=== PATIENT | female | born 1965 | race Caucasian/White ===

== ENCOUNTER 2021-05-19 01:35 | Outpatient (CLI) | payer OTHER, SELFPAY ==
--- NOTE | 2021-05-19 06:45 | DI.MAMMO_ITS ---
Exam(s) MAMMO SCREENING EXAM: MAMMO SCREENING CLINICAL HISTORY: screening,Z12.39. TECHNIQUE: Bilateral full field digital CC and MLO mammographic images were obtained with 3D tomosyn thesis and utilizing computer aided detection (CAD). COMPARISON: Prior [place] of state mammogram performed January 2020 was reviewed. FINDINGS: No new significant left breast findings. In the right breast there are few nodular densities, the largest being in the upper outer quadrant lo cated 12 cm from the nipple and measuring 9 by 5 millimeters, unchanged. There are no new findings in the immediate vicinity of the biopsy marker clip in the medial aspect of the right breast. Another smaller asymmetric density-possible nodule seen mid aspect of the right breast, slightly more evident on the prior study although this may be technique related. No malignant-appearing microcalc ification groups in this region or elsewhere in either breast. There is no significant architectural distortion nor skin thickening-retraction. IMPRESSION: 1. No radiographic evidence of malignancy in left breast. 2. Nodular densities in the right breast, 1 slightly larger than previous outside mammogram of [facility] 2019. Recommend spot compression views and ultrasound right breast. BI-RADS Category 0 - Assessment Incomplete: Need additional imaging evaluation Breast Density - Category B - Scattered areas of fibroglandular density Breast density Category C or D implies that the patient has dense breast tissue. Dense breast tissue can make it harder to find cancer on a mammogram. Dense breast tissue is also associated with an incr eased risk of breast cancer. This information about the result of the mammogram report was provided to the patient to raise their awareness. Use this report when you speak with the patient about their risks for breast cancer, which includes their family history. At that time, you may recommend additional screening tests (Ultrasoun d or MRI) as these tests may add significant information. A negative radiographic report should not delay biopsy if a dominant or clinically suspicious mass is present. Up to ten percent of cancers are not identified on mammography. A negative report may reinforce clinical impression. Adenosis and dense breasts may obscure an underlying neoplasm. False positive reports average 6 to 10%. Patient will receive a letter notifying them of these results.
== END 2021-05-19 01:55 ==
DX: Z12.31 Encounter for screening mammogram for malignant neoplasm of breast (principal); R92.8 Other abnormal and inconclusive findings on diagnostic imaging of breast
CPT/HCPCS: 77063; 77067

== ENCOUNTER 2021-05-29 03:25 | Outpatient (CLI) | payer OTHER, SELFPAY ==
--- NOTE | 2021-05-29 | DI.MAMMO_ITS ---
Exam(s) MAMMO SCREEN CALL BACK UNI EXAM: MAMMO SCREEN CALL BACK UNI CLINICAL HISTORY: NODULAR DENSITIES RT BREAST TECHNIQUE: Spot compression views and tomographic imaging were performed. COMPARISON: 19 May 2021 in January 2020 from [place], [place] FINDINGS: No suspicious masses or suspicious microcalcifications are seen. There are 2 stable areas of nodularity, 1 in the upper outer quadrant and the other in the central br east tissue. Margins are circumscribed. There has been no significant change from prior exams. IMPRESSION: BI-RADS Category 2 - Benign Findings Yearly screening mammography is recommended. Breast Density - Category B, scattered fibroglandular densities.
== END 2021-05-29 03:45 ==
DX: Z12.31 Encounter for screening mammogram for malignant neoplasm of breast (principal); R91.8 Other nonspecific abnormal finding of lung field; N63.11 Unspecified lump in the right breast, upper outer quadrant; N63.31 Unspecified lump in axillary tail of the right breast
CPT/HCPCS: 77063; 77067

== ENCOUNTER 2021-09-23 02:32 | Outpatient (CLI) | payer OTHER, SELFPAY ==
[2021-09-23 09:47] LABS: ALT 35 U/L (14-59); AST 24 U/L (15-37); Albumin 3.6 g/dL (3.4-5.0); Alkaline Phosphatase 75 U/L (46-116); Anion Gap 5.6 mmol/L (3-11); BUN 11 mg/dL (7-18); Bilirubin, Total 0.5 mg/dL (0.2-1.0); CO2 29.4 mmol/L (21.0-32.0); CREATININE 0.8 mg/dL (0.55-1.02); Calcium 9.2 mg/dL (8.5-10.1); Calculated LDL 160 mg/dL (<100); Chloride 104 mmol/L (98-107); Cholesterol 252 mg/dL (<200); Glucose 96 mg/dL (74-106); HDL Cholesterol 64 mg/dL (40-60); Potassium 3.9 mmol/L (3.5-5.1); Sodium 139 mmol/L (136-145); Total Protein 7.7 g/dL (6.4-8.2); Triglyceride 143 mg/dL (<150)
[2021-09-25 20:01] LABS: Clam IgE <0.35 kU/L; Codfish IgE <0.35 kU/L; Crab IgE <0.35 kU/L; Halibut IgE <0.35 kU/L; Lobster IgE <0.35 kU/L; Mackerel IgE <0.35 kU/L; Oyster IgE <0.35 kU/L; Salmon IgE <0.35 kU/L; Scallop IgE <0.35 kU/L; Shrimp IgE <0.35 kU/L; Trout IgE <0.35 kU/L; Tuna IgE <0.35 kU/L
[2021-09-30 17:53] LABS: CLASS 0; Perch Ocean IgE <0.35 kU/L (<0.35)
== END 2021-09-23 02:33 | disposition home or self-care (01) ==
LOC: LBO 02:32
PROVIDERS: Physician Assistant; Visit Provider Family Medicine
DX: Z00.00 Encounter for general adult medical examination without abnormal findings (principal); Z13.220 Encounter for screening for lipoid disorders; T78.1XXA Other adverse food reactions, not elsewhere classified, initial encounter; Z91.018 Allergy to other foods
CPT/HCPCS: 36415; 80053; 80061; 86003

== ENCOUNTER 2021-12-18 11:46 | Day surgery (SDC) | payer OTHER, SELFPAY ==
--- NOTE | 2021-12-18 09:13 | COLE_ITS ---
Colonoscopy Report Date of procedure: 12/18/21 Pre-op diagnosis general: CRC screen Post-op diagnosis procedure note: other (ext hemorrhoids/minor diverticula ) Surgeon: Cassidy Damian Anesthesia Type: General:No Airway Estimated blood loss (mL): 0 Pathology: none sent Complications: None Disposition: same day Prep: Miralax/Dulcolax Retraction Time: 7 mins Procedure Description: After informed consent was obtained the patient was taken to the procedure room and placed in a left decubitous position. Monitors were applied and a time out was done. The patients name, date of , procedure, allergies to medications and metal in their body was reviewed. The patient was then sedated. Once sedated and comfortable a rectal exam was done. External exam: external hemorrhoids, no acite thrombosis. Internal exam revealed a normal sphincter tone and no palpable masses. The scope was then introduced and retrofelexed. No internal hemorrhoids were identified, there are some old hemorrhoidal tags apparent. Without. The scope was then advanced to the cecum difficulty. The TI and appendiceal orifice were identified. The prep was BB PS 3 in all segments for a total of 9.. The scope was then slowly retracted over 7 minutes back into the rectum. There are no polyps or AVMs visualized today. She does have minor diverticula confined to the sigmoid colon. There is no signs of active bleeding or infection. The mucosa is pink and healthy with a normal vascular pattern.. The scope was removed and the patient was woken up and taken back to Same day surgery in stable condition. The patient tolerated the procedure well and there were no immediate complicat ions. Follow up: The patient should follow up in 10 years unless they develop changes in bowel habits or other new gastrointestinal complaints.
--- NOTE | 2021-12-18 09:14 | PDOC.DSDIS_ITS ---
Discharge Plan Disposition Patient Disposition: HOME Condition: Good Discharge Details Reason For Visit: colon scpoe Attending Provider: Cassidy Damian Primary Care Provider: Kari Perkins Home Meds and New Rx's Prescriptions: Continued psyllium husk [Metamucil] 0.4 gram capsule 0.4 g PO DAILY dextroamphetamine-amphetamine 10 mg tablet 5 - 10 mg PO DAILY MDD 15mg Qty: 42 0RF Rx Instructions: Take 10mg in AM and additional 5mg 4-5 hours later if needed. aspirin 81 mg tablet,delayed release (DR/EC) 81 mg PO DAILY albuterol sulfate [Proventil HFA] 90 mcg/actuation HFA aerosol inhaler 2 puff inhalation Q6H PRN (Reason: shortness of breath or wheezing) Qty: 8.5 0RF Discontinued polyethylene glycol 3350 17 gram/dose powder 238 g PO ONCE Qty: 238 0RF Rx Instructions: take per colonoscopy instructions bisacodyl [Dulcolax (bisacodyl)] 5 mg tablet,delayed release (DR/EC) 5 mg PO ONCE Qty: 4 0RF Rx Instructions: take per colonoscopy instructions Discharge Instructions Additional Instructions: DSU Colonoscopy Post- Op Instructions Instructions for Everyone who is given Anesthesia: For your safety, please do the following for the next twenty-four (24) hours: *Do Not operate a motor vehicle (car, truck, motorcycle, etc.) *Do Not drink alcoholic beverages or use any recreational drugs for the first 24 hours or while taking pain medications. The medications in your body may have a reaction that can be dangerous. *Do Not make any important decisions or sign any important papers. Findings: minor diverticula-make sure you are moving your bowels on a regular basis and avoid straining to go to the bathroom. If you are having problems with constipation on a regular basis, then I would recommend you start a fiber supplement. Follow up: Repeat in 10 yrs time 1. No lifting over 20 pounds or strenuous activity for the first 24 hours after your procedure. After 24 hours there are no restrictions on your activity but you may feel fatigued for a few days. 2. After you arrive home you may have a light meal and return to your normal diet as you can tolerate it without feeling sick to your stomach. 3. You may have a bloated, gaseous feeling in your belly (abdomen) after a colonoscopy. Passing gas and belching will help. Walking or lying down on your left side with your knees flexed may relieve the discomfort. Call the office at [phone] (Office) or [phone] (Hospital) right away if you notice any of the following: a.Vomiting of blood or ?coffee ground stools?. b.Rectal bleeding 1Tbsp, blood clots or continuous bleeding. c.Severe belly (abdominal) pain. d.A hard distended belly (abdomen) and an inability to pass gas. 4. Please don?t expect to have a normal BM (bowel movement) for 2-3 days after your procedure. 5. If there are questions regarding the findings of your procedure, please contact your doctor 6. If you are unable to contact your doctor with a problem, contact the hospital at [phone]. 7. Continue all your regular medications unless directed otherwise. I understand the above instructions and have no questions. Signature of Patient or Adult Escort Name of Responsible Adult Escort Signature of Nurse Date/Time Activity:: see baove Diet:: as above Discharge Orders Discharge Orders: Discharge Order (Routine); Ordered 12/18/21 Ordered By: Cassidy Damian
[2021-12-18 12:44] VITALS: BP 119/83; PULSE 78; RESP 18; TEMP 36.7; O2SAT 98
[2021-12-18] MEDS: Lactated Ringers 1,000 ML 80 ML IV (13:08)
--- NOTE | 2021-12-18 13:32 | W.ANESPRE ---
General Info Date of Service Date Performed: 12/18/21 Height: 5 ft 1 in Weight: 64.58 kg Body Mass Index (BMI): 26.9 Surgical Procedure: Operation Date: 12/18/21 13:35 Proposed Procedure Side Surgeon lamont Damian, DO Meds Allergies and Home Medications Allergies Allergy/AdvReac Type Severity Reaction Status Date / Time Penicillins Allergy Severe Hives Unverified 12/17/21 15:23 Sulfa (Sulfonamide Allergy Severe Hives Verified 12/17/21 15:23 Antibiotics) Home Medication Medication Instructions Recorded aspirin 81 mg tablet,delayed 81 mg PO DAILY 06/24/20 release albuterol sulfate 90 mcg/actuation 2 puff inhalation Q6H PRN 08/19/21 aerosol inhaler (Proventil HFA) shortness of breath or wheezing #8.5 grams dextroamphetamine-amphetamine 10 5 - 10 mg PO DAILY #42 tabs 11/24/21 mg tablet psyllium husk 0.4 gram capsule 0.4 g PO DAILY 12/08/21 (Metamucil) Current Visit Medications: Current Medications Generic Name Dose Route Start Last Admin Trade Name Freq PRN Reason Stop Dose Admin Hyoscyamine Sulfate 0.125 mg 12/18/21 09:03 Hyoscyamine 0.125 Mg Sl/Oral/Chew SL DIRECTED PRN Ringer's Solution 1,000 mls @ 80 mls/hr 12/18/21 06:00 12/18/21 13:08 IV 01/16/22 23:59 80 mls/hr INFUSION LEYLA Administration IV Miscellaneous Supplies 1 each 12/18/21 06:00 Iv Access IV 01/16/22 23:59 DIRECTED LEYLA Ondansetron HCl 4 mg 12/18/21 09:03 Ondansetron 4 Mg/2 Ml Vial IVP Q4H PRN PRN Nausea / Vomiting Sodium Chloride 0 ml 12/18/21 06:00 Normal Saline Flush 10 Ml Syr IV 01/16/22 23:59 PRN PRN Sodium Chloride 0 ml 12/18/21 06:00 Normal Saline 10 Ml Vial IJ 01/16/22 23:59 DIRECTED PRN Sterile Water 0 ml 12/18/21 06:00 Water,Injection,Sterile 10 Ml Vial IJ 01/16/22 23:59 DIRECTED PRN PFSH Active Problems Active Problems: Problem Status Onset Code Hyperlipidemia E78.5 Immunization due Z23 ADHD (attention deficit hyperactivity disorder), combined type F90.2 Chronic seasonal allergic rhinitis J30.2 Seafood allergy Z91.013 Reactive airway disease J45.909 Ear pain, left H92.02 Chronic constipation K59.09 Fatigue R53.83 Fracture of foot S92.906W Medical History Medical History History of ADHD Surgical History Surgical History Hx of LASIK (~11/2019) Tobacco Smoking/Tobacco Use Status: Never Passive smoking exposure: Yes Second hand exposure: Yes Alcohol Alcohol Intake: current Alcohol intake frequency: holidays/special occasions only Alcohol type: wine and hard liquor Substance Use Substance use: Never Substance use type: does not use Counseling provided: none Vital Signs and Lab Results Vital Signs Most Recent Vital Signs in EMR: Most Recent Vital Signs Temp Pulse Resp BP Pulse Ox 36.7 C 78 18 119/83 98 12/18/21 12:44 12/18/21 12:44 12/18/21 12:44 12/18/21 12:44 12/18/21 12:44 Lab Results Blood Type / Crossmatch: No Data to Display Complete Blood Count: No Data to Display Complete Metabolic Panel: No Data to Display Liver Function Panel: No Data to Display Coagulation Panel: No Data to Display Cardiac Panel: No Data to Display Arterial Blood Gas: No Data to Display Venous Blood Gas: No Data to Display Pancreas Panel: No Data to Display Thyroid Panel: No Data to Display Infectious Disease: No Data to Display Blood Cultures: No Data to Display Toxicology Panel: No Data to Display Panel: No Data to Display Anesthesia Assessment and Plan Anesthesia History Personal History: No History of Anesthesia Complications Family History: No Family History of Anesthesia Complications Exercise Tolerance Exercise Tolerance: Metabolic Equivalents>4 Pertinent Negatives Pertinent Negatives: No Symptoms of GERD, No Major Cardiovascular Symptoms or Complaints, No Major Pulmonary Symptoms or Complaints (Asthma mild exercise induced ) and No History of CVA/TIA Cardiac & Pulmonary Exam Cardiac Exam: Normal S1/S2 Heart Sounds Pulmonary Exam: Clear Bilateral Breath Sounds Implantable Cardiac Device Does patient have a Pacemaker or an ICD?: No Airway Exam Known Difficult Airway: No Mallampati Class: 3 Mouth Opening: Normal (> 3cm) Thyromental Distance: Greater than 3 cm Neck Range of Motion: Full ROM Neck Circumference: Normal Teeth Condition: Normal Dentition Airway Comments: Crowns Implant lower right ASA Classification ASA Score: ASA 2 Emergency Case?: No NPO Status NPO Status: NPO Clears >2 hours, Solids >8 hours Status Status: Not Relevant due to Medical History Anesthesia Plan Resuscitation Status: Full Code Anesthesia Technique: General Anesthesia Airway Planned: Natural Airway Monitors Used: Standard Monitors
[2021-12-18 13:35] VITALS: BMI 26.9
--- NOTE | 2021-12-18 14:10 | W.ANESPOSTOP ---
Postoperative Evaluation Date, Time and Location Date Performed: 12/18/21 Time Performed: 14:11 Patient Location: Day Surgery Unit Vital Signs Most Recent Imported Vital Signs: Most Recent Vital Signs Temp Pulse Resp BP Pulse Ox 36.7 C 78 18 119/83 98 12/18/21 12:44 12/18/21 12:44 12/18/21 12:44 12/18/21 12:44 12/18/21 12:44 Most Recent Manually Entered Vital Signs: Adult Blood Pressure: 113/80 Heart Rate: 84 Respirations: 10 Oxygen Saturation (%): 98 Temperature (C): 36.1 C Pain Score (0-10 Scale): 0 Pain Score Most Recent Pain Score: Most Recent Pain Score Pain Level 0 12/18/21 12:44 Assessment Mental Status: Arousable with meaningful communication Airway and Respiratory Function: Patent airway with normal (patient baseline) respiratory exam Cardiovascular Function: Hemodynamically Stable Hydration Status: Adequately Hydrated Nausea & Vomiting: No Nausea or Vomiting Pain: Pt. Denies Any Pain Peripheral Nerve Block: Patient did not receive a nerve block
[2021-12-18 14:11] VITALS: BP 113/80; PULSE 85; RESP 16; TEMP 36.1; O2SAT 97
[2021-12-18 14:12] VITALS: BP 113/80; PULSE 84; RESP 10; TEMPC 36.1; O2SAT 98
[2021-12-18 14:49] VITALS: BP 133/84; PULSE 76; RESP 18; TEMP 36.6; O2SAT 98
== END 2021-12-18 11:47 | disposition home or self-care (01) ==
PROVIDERS: Visit Provider Surgery
PROC: 0DJD8ZZ Inspection of Lower Intestinal Tract, Via Natural or Artificial Opening Endoscopic (ICD-10-PCS; CPT 45378; principal; 2021-12-18 13:30)
DX: Z12.11 Encounter for screening for malignant neoplasm of colon (principal); K64.4 Residual hemorrhoidal skin tags; K57.30 Diverticulosis of large intestine without perforation or abscess without bleeding
CPT/HCPCS: 45378; J2250

== ENCOUNTER 2022-04-17 10:28 | Outpatient (REF) | payer OTHER, SELFPAY ==
--- OUTSIDE RECORDS SUMMARY | 2022-04-17 10:30 | XMS_ITS ---
:1965 Author Organization [facility] Address [address], [place] [id number] Care Team Providers Name Role Phone Robert Pineda Unavailable Unavailable PROBLEMS Type Condition ICD9-CM Code EAP90-EL Code Onset Condition SNO MED Code Dates Status Problem Allergic rhinitis J30.1 Active 21 [id number] due to pollen Problem Allergic rhinitis J30.1 Active due to pollen, unspecified seasonality Problem Chronic rhinitis J31.0 Active 860 58570 Problem Mild intermittent J45.20 Active 42 6010127 asthma without complication Problem Food allergy Z91.018 Active 6346637 01 Problem Allergic rhinitis J30.9 Active 61 791462 due to allergen ALLERGIES Substance Reaction Event Type Date Status Dust Mites Unknown Drug Allergy May, Active seafood Unknown Non Drug Allergy May, Active Cat Dander Unknown Drug Allergy May, Active Pollen Unknown Drug Allergy May, Active Dog Dander Unknown Drug Allergy May, Active Penicillin Unknown Drug Allergy May, Active Mold Unknown Drug Allergy May, Active Sulfa Antibiotics Unknown Drug Allergy May, Active ENCOUNTERS Encounter Location Date Diagnosis [address], Dec, Allerg ic rhinitis due to [facility] [address] [address] polle n J30.1 [place] [id number] [address], Dec, Allerg ic rhinitis due to [facility] [address] polle n, unspecified [facility] seasonality J30.1 [id number] [address], Dec, [facility] [address] [facility] [place] [id number] [address], Sep, Allerg ic rhinitis due to [facility] [address] [address] polle n J30.1 [place] [id number] [address], Aug, Allerg ic rhinitis due to [facility] [address] [address] polle n, unspecified [facility] [place] seasonality J30.1 [id number] [address], Aug, Allerg ic rhinitis due to [facility] [address] [address] polle n J30.1 [place] [id number] [address], July, Allerg ic rhinitis due to [facility] [address] [address] polle n J30.1 [place] [id number] [address], Jun, Allerg ic rhinitis due to [facility] [address] [address] polle n J30.1 [place] [id number] [address], Jun, [facility] [address] [place] [id number] [address], May, Allerg ic rhinitis due to [facility] [address] [address] polle n J30.1 [place] [id number] [address], May, Allerg ic rhinitis due to [facility] 5 [address] polle n, unspecified [facility] [place] seasonality J30.1 [id number] [address], May, [facility] [address] [place] [id number] [address], May, Allerg ic rhinitis due to [facility] [address] [address] aller gen J30.9 [place] [id number] [address], Dec, Advers e food reaction, [facility] [address] [address] initi al encounter T78.1XXA [place] ; Food aller gy Z91.018 ; [id number] Mild intermitten t asthma without complica tion J45.20 ; Chronic rhinitis J31.0 and Postna karolina drip R09.[address], Nov, [facility] [address] [address] [place] [id number] IMMUNIZATIONS No Known Immunizations SOCIAL HISTORY Qualifiers Date Never Smoker REASON FOR REFERRAL FUNCTIONAL STATUS PLAN OF CARE VITAL SIGNS Height 5 ft 1.25 in in 2021-05-30 Height 5 ft 1.25 in in 2021-01-03 Weight 140 lbs 2021-01-03 Heart Rate 92 /min 2021-05-30 Oximetry 98 2021-05-30 Respiratory Rate 16 /min 2021-05-30 BMI 26.23 kg/m2 2021-01-03 Blood pressure systolic 124 mm Hg 2021-05-30 Blood pressure diastolic 70 mm Hg 2021-05-30 MEDICATIONS Medication Instructions Dosage Frequency Start End Duration Statu s Date Date Aspirin 81 MG Orally Once a 1 tablet 24h 30 day(s) A ctive day Albuterol Sulfate Inhalation 2 puffs Act yoselin HFA 108 (90 Base) Daily PRN MCG/ACT Loratadine 10 MG Orally Once a 1 tablet 24h 30 day(s ) Active day Dextroamphetamine Orally QAM 1 capsule A ctive Sulfate ER 10 MG EpiPen 2-Eliceo 0.3 Injection PRN as May, ctive MG/0.3ML directed 2021 PROCEDURES Procedure Date Ordered Result Body Site PRICK TESTS May 30, 2021 UNLISTED ALLERGY/CLINICAL IMMUNOLOGIC SERVICE/PROC July 04 UNLISTED ALLERGY/CLINICAL IMMUNOLOGIC SERVICE/PROC Dec 30, 2021 UNLISTED ALLERGY/CLINICAL IMMUNOLOGIC SERVICE/PROC September 24, 2021 INTRADERMAL TESTS May 30, 2021 UNLISTED ALLERGY/CLINICAL IMMUNOLOGIC SERVICE/PROC June 06 2 RESULTS No Results REASON FOR VISIT SLIT Yoga Instructor, SLIT Mix, SLIT picker , SLIT Yoga Instructor, SLIT Mix, ENT SLIT BU vial #4, ENT SLIT BU Vial#3, ENT SLIT Pick-Up, SLIT BU Pickup, ENT BU # 2, ENT SLIT Build up vial #1, BUILD UP SLIT MIX, Environmental Testing, PFP Allergy Test, ENT Environmental Testing, ENT CHIEF OPTOMETRY SERVICE Allergy Consult, CHART PRELOAD Insurance Providers [facility] Member Patient Patient Patient Patient Patient Subscriber Subscriber Subscriber Group Insurance Plan Plan Plan Plan ID Relationship Address Phone Name Date of ID Name Date of No Type Insurance Insurance Insurance Coverage to Subscriber Address Phone Name Dates [facility] [address] [place] [address] [phone] [facility] self Deloris 03 [id number] [facility] [address] [place] [address] [facility] [address] [facility] - self Deloris 1965 [facility] (Write [place] (Write Off) [place] [address] Off)
[2022-04-17 12:30] LABS: HCT 44.4 % (36.0-46.0); HGB 14.8 g/dL (11.2-15.7); MCH 29.3 pg (27.0-33.0); MCHC 33.3 % (32.0-36.0); MCV 88 fL (80-95); MPV 9.5 fL (8.0-11.0); Platelet Count 366 10^3/uL (130-400); RBC 5.05 10^6/uL (3.93-5.22); RDW 12.5 % (11.7-14.6); RDW-SD 40.4 fL; WBC 6.43 10^3/uL (4.4-10.8)
[2022-04-17 12:54] LABS: Anion Gap 5.9 mmol/L (3-11); BUN 13 mg/dL (7-18); CO2 27.1 mmol/L (21.0-32.0); CREATININE 0.7 mg/dL (0.55-1.02); Calcium 9.7 mg/dL (8.5-10.1); Chloride 106 mmol/L (98-107); Estimated GFR 102.71 (mL/min/1.73m2); Glucose 98 mg/dL (74-106); Potassium 4.5 mmol/L (3.5-5.1); Sodium 139 mmol/L (136-145); TSH (W/Ref FT4) 0.99 uIU/mL (0.36-3.74)
== END 2022-04-17 10:29 | disposition home or self-care (01) ==
LOC: LBN 10:28
PROVIDERS: PCP Nurse Practitioner Family; Visit Provider Nurse Practitioner Family
DX: R53.83 Other fatigue (principal)
CPT/HCPCS: 80048; 85027; 84443

== ENCOUNTER 2023-08-09 07:49 | Day surgery (SDC) | payer OTHER, SELFPAY ==
--- NOTE | 2023-08-08 12:57 | W.PM.DSUDISC ---
Date of service: 08/09/23 Time of Service: 09:01 Discharge Plan Disposition Patient Disposition: Home Condition: Good Discharge Details Reason For Visit: colonoscopy Attending Provider: Leonardo Rios Primary Care Provider: Chandan Garcia Home Meds and New Rx's Prescriptions: Continued psyllium husk [Metamucil] 0.4 gram capsule 0.4 g PO DAILY albuterol sulfate [Proventil HFA] 90 mcg/actuation HFA aerosol inhaler 2 puff inhalation Q6H PRN (Reason: shortness of breath or wheezing) Qty: 8.5 0RF dextroamphetamine-amphetamine [Adderall] 15 mg tablet 15 mg PO BID MDD 30 Qty: 60 0RF Rx Instructions: administer doses at least 4-6 hours apart Discontinued polyethylene glycol 3350 17 gram/dose powder 238 g PO ONCE Qty: 238 0RF Rx Instructions: take per colonoscopy instructions bisacodyl [Dulcolax (bisacodyl)] 5 mg tablet,delayed release (DR/EC) 5 mg PO ONCE Qty: 4 0RF Rx Instructions: take per colonoscopy instructions Discharge Instructions Instructions: Diverticulosis (GEN), Diverticulosis Diet (GEN) Additional Instructions: Deloris, we were able to complete your colonoscopy today without any difficulty. The source of your bleeding is from the sigmoid colon, and an area of diverticulosis. Diverticula are little weak spots in the muscular part of the colon wall. They typically accumulate as we get older. Although many patients experience this as pain, other patients will have bleeding complications. In the absence of active bleeding, there is no particular therapy that needs to be performed. My typical approach to patients with complications from diverticulosis is dietary management, this will generally help solve the problem. However, some patients will continue to experience episodes of active diverticulitis flares, or bleeding. In those cases, there may be a role for surgery to remove the segment in an effort to reduce complications moving forward. Have taken the liberty of scheduling a follow-up visit with me in the office on September 06 at 11:45 AM. I have also attached some general information here about diverticular disease and typical approaches to the management. In very simple terms, I would encourage you to maximize your dietary fiber, targeting somewhere between 25 and 35 g of fiber every day. If you have any bleeding episodes in the meantime, please do not hesitate to call the office and let us know, otherwise I look forward to seeing you in August. 1. If tolerated, consume a soft, low fiber diet for 1-2 days. [address] not drive, drink alcohol, operate machinery, make critical decisions, or do activities that require coordination or balance for 24 hours. 3. Because air was put into your colon during the procedure, expelling air from your rectum (passing gas or farting) is normal. 4. You may not have a bowel movement for 1-3 days because of the colonoscopy prep. This is normal. 5. Go directly to the emergency room if you notice any of the following: Develop chills (warm to touch), or if you have a thermometer and your temperature is above 101 Difficulty breathing or difficultly swallowing Persistent vomiting Severe abdominal pain, other than gas cramps Severe chest pain Black, tarry stools Any bleeding ? exceeding one tablespoon 6. Call your physician if the site where your intravenous was started becomes red, swollen, painful, and warm to touch. 7. Your physician has reviewed your pre-procedure medications. Please continue to take those medications as previously ordered. You will be given specific information/education regarding any changes to your medications before leaving. Referrals: Leonardo Rios MD [ [facility] STAFF PHYSICIAN] - (September 06 at 11:45 AM) Activity:: Activity as Tolerated Diet:: As Tolerated Discharge Orders Discharge Orders: Discharge Order (Routine); Ordered 08/08/23 Ordered By: Leonardo Rios DS: Diagnosis Discharge Diagnosis (1) Hematochezia: Status: Acute Asessment and Plan: Outpatient follow-up 1 month
--- NOTE | 2023-08-08 12:58 | W.COLOREPORT ---
Date of service: 08/09/23 Time of Service: 09:04 Colonoscopy Report Date of procedure: 08/09/23 Pre-op diagnosis general: Hematochezia Post-op diagnosis procedure note: other (Diverticulosis) Procedure: Colonoscopy Surgeon: Leonardo Rios Anesthesia Type: General:No Airway Estimated blood loss (mL): 0 Pathology: none sent Complications: None Disposition: same day Indications: Deloris is a 57 year old woman who has been experiancing intermittent hematochezia Prep: Miralax/Dulcolax Procedure Start Time: 08:41 Procedure End Time: 08:53 Retraction Time: 8 Findings: Diverticulosis with mucosal inflammation Procedure Description: After the induction of monitored anesthetic care, and with the patient in left lateral decubitus position, I began by performing an external anorectal exam.? Perineum and skin were normal, as was the anal verge.? There are some perianal skin tags consistent with old hemorrhoids.? Next, I performed a digital rectal exam.? I did not appreciate any abnormal findings.? Next, I advanced a colonoscope into the rectal vault.? I performed retroflexion.? There is grade 1 internal hemorrhoids.? Using insufflation, I then advanced the colonoscope beyond the rectal folds and into the sigmoid colon before advancing towards the cecum.? The quality of the prep was excellent.? Beginning at 25 cm, to just beyond 30 cm is an area of active inflammation. There are patchy areas adjacent to diverticula that appear consistent with mucosal irritation and inflammation. There are no visible vessels. Narrowband imaging was used to assist with analysis. I was able to navigate across this without any difficulty. Majority of the diverticular disease stops around 35 cm from the anus. There are a few scattered diverticula beyond this, but they are quite rare. The scope was noted to be in the cecum by identification of the ileocecal valve and appendiceal orifice.? I then began withdrawing the colonoscope using repeated irrigation as necessary for full evaluation of the colonic mucosa. ?Once the scope was withdrawn to the level of the rectum, great care was taken to examine portions of the rectal folds.? Finally, the scope was withdrawn and the patient was brought to the same-day surgery recovery unit as the anesthetic wore off. ?The findings and instructions were shared with the patient prior to discharge. [employer] Bowel Prep [employer] Bowel Prep Right Colon: 3 Left Colon: 3 Transverse Colon: 3 Total Score: 9
[2023-08-09 07:56] VITALS: BP 123/79; PULSE 92; RESP 20; TEMP 36.7; O2SAT 98
[2023-08-09] MEDS: Lactated Ringers 1,000 ML 80 ML IV (08:13)
--- NOTE | 2023-08-09 08:21 | W.ANESPRE ---
General Info Date of Service Date Performed: 08/09/23 Height: 5 ft 1 in Weight: 60.7 kg Body Mass Index (BMI): 25.2 Surgical Procedure: Operation Date: 08/09/23 09:10 Proposed Procedure Side Surgeon p Colonoscopy Leonardo Rios MD s Possible Hemorrhoid Banding Leonardo Rios MD Meds Allergies and Home Medications Allergies Allergy/AdvReac Type Severity Reaction Status Date / Time Penicillins Allergy Severe Hives Verified 08/09/23 07:54 Sulfa (Sulfonamide Allergy Severe Hives Verified 08/09/23 07:54 Antibiotics) Home Medication Medication Instructions Recorded psyllium husk 0.4 gram capsule 0.4 g PO DAILY 12/08/21 (Metamucil) albuterol sulfate 90 mcg/actuation 2 puff inhalation Q6H PRN 12/12/22 aerosol inhaler (Proventil HFA) shortness of breath or wheezing #8.5 grams dextroamphetamine-amphetamine 15 15 mg PO BID #60 tabs 06/08/23 mg tablet (Adderall) Current Visit Medications: Current Medications Generic Name Dose Route Start Last Admin Trade Name Freq PRN Reason Stop Dose Admin Hyoscyamine Sulfate 0.125 mg 08/08/23 12:59 Hyoscyamine 0.125 Mg Sl/Oral/Chew SL 09/07/23 12:58 DIRECTED PRN Ringer's Solution 1,000 mls @ 80 mls/hr 08/09/23 06:00 08/09/23 08:13 IV 09/05/23 23:59 80 mls/hr INFUSION LEYLA Administration IV Miscellaneous Supplies 1 each 08/09/23 06:00 Iv Access IV 09/05/23 23:59 DIRECTED LEYLA Ondansetron HCl 4 mg 08/08/23 12:59 Ondansetron 4 Mg/2 Ml Vial IVP 09/07/23 12:58 Q4H PRN PRN Nausea / Vomiting Sodium Chloride 0 ml 08/09/23 06:00 Normal Saline Flush 10 Ml Syr IV 09/05/23 23:59 PRN PRN Sodium Chloride 0 ml 08/09/23 06:00 Normal Saline 10 Ml Vial IJ 09/05/23 23:59 DIRECTED PRN Sterile Water 0 ml 08/09/23 06:00 Water,Injection,Sterile 10 Ml Vial IJ 09/05/23 23:59 DIRECTED PRN PFSH Active Problems Active Problems: Problem Status Onset Code Hematochezia K92.1 Left lower quadrant pain R10.32 Rectal hemorrhage K62.5 TMJ dysfunction M26.609 Fatigue R53.83 Chronic constipation K59.09 Reactive airway disease J45.909 Chronic seasonal allergic rhinitis J30.2 ADHD (attention deficit hyperactivity disorder), combined type F90.2 Hyperlipidemia E78.5 Diverticula of colon K57.30 Low back pain M54.50 Skin lesions L98.9 Medical History Medical History Immunization due History of ADHD Ear pain, left Fracture of foot Surgical History Surgical History Hx of LASIK (~11/2019) Tobacco Smoking/Tobacco Use Status: Never Passive smoking exposure: No Second hand exposure: Yes Alcohol Alcohol Intake: current Alcohol intake frequency: holidays/special occasions only Alcohol type: wine and hard liquor Substance Use Substance use: Never Substance use type: does not use Counseling provided: none Vital Signs and Lab Results Vital Signs Most Recent Vital Signs in EMR: Most Recent Vital Signs Temp Pulse Resp BP Pulse Ox 36.7 C 92 H 20 123/79 98 08/09/23 07:56 08/09/23 07:56 08/09/23 07:56 08/09/23 07:56 08/09/23 07:56 Lab Results Blood Type / Crossmatch: No Data to Display Complete Blood Count: No Data to Display Complete Metabolic Panel: No Data to Display Liver Function Panel: No Data to Display Coagulation Panel: No Data to Display Cardiac Panel: No Data to Display Arterial Blood Gas: No Data to Display Venous Blood Gas: No Data to Display Pancreas Panel: No Data to Display Thyroid Panel: No Data to Display Infectious Disease: No Data to Display Blood Cultures: No Data to Display Toxicology Panel: No Data to Display Anesthesia Assessment and Plan Anesthesia History Personal History: No History of Anesthesia Complications Family History: No Family History of Anesthesia Complications Exercise Tolerance Exercise Tolerance: Metabolic Equivalents>4 Pertinent Negatives Pertinent Negatives: No Symptoms of GERD, No Major Cardiovascular Symptoms or Complaints, No Major Pulmonary Symptoms or Complaints and No History of CVA/TIA Cardiac & Pulmonary Exam Cardiac Exam: Normal S1/S2 Heart Sounds Pulmonary Exam: Clear Bilateral Breath Sounds Implantable Cardiac Device Does patient have a Pacemaker or an ICD?: No Airway Exam Known Difficult Airway: No Mallampati Class: 3 Mouth Opening: Normal (> 3cm) Thyromental Distance: Greater than 3 cm Neck Range of Motion: Full ROM Neck Circumference: Normal Teeth Condition: Normal Dentition Airway Comments: Crowns Implant lower right ASA Classification ASA Score: ASA 2 Emergency Case?: No NPO Status NPO Status: NPO Clears >2 hours, Solids >8 hours Anesthesia Plan Resuscitation Status: Full Code Anesthesia Technique: General Anesthesia Airway Planned: Natural Airway Monitors Used: Standard Monitors Preoperative Comments:: Rare inhaler use, post nasal gtt with slight cough
[2023-08-09 08:25] VITALS: BMI 25.2
[2023-08-09 08:58] VITALS: BP 108/75; PULSE 81; RESP 18; TEMP 36.6; O2SAT 97
[2023-08-09 09:02] VITALS: BP 134/66; PULSE 56; RESP 16; TEMP 36.6; O2SAT 97
--- NOTE | 2023-08-09 09:12 | W.ANESPOSTOP ---
Postoperative Evaluation Date, Time and Location Date Performed: 08/09/23 Time Performed: 09:12 Patient Location: Day Surgery Unit Vital Signs Most Recent Imported Vital Signs: Most Recent Vital Signs Temp Pulse Resp BP Pulse Ox 36.6 C 56 L 16 134/66 97 08/09/23 09:02 08/09/23 09:02 08/09/23 09:02 08/09/23 09:02 08/09/23 09:02 Pain Score Most Recent Pain Score: Most Recent Pain Score Pain Level 0 08/09/23 09:02 Assessment Mental Status: Awake (Alert & Oriented to Patient Baseline) Airway and Respiratory Function: Patent airway with normal (patient baseline) respiratory exam Cardiovascular Function: Hemodynamically Stable Hydration Status: Adequately Hydrated Nausea & Vomiting: No Nausea or Vomiting Pain: Pt. Denies Any Pain Peripheral Nerve Block: Patient did not receive a nerve block
[2023-08-09 09:29] VITALS: BP 132/81; PULSE 80; RESP 16; TEMP 36.6; O2SAT 97
== END 2023-08-09 09:30 | disposition home or self-care (01) ==
LOC: SUR 07:50
PROVIDERS: PCP Nurse Practitioner Family; Visit Provider Surgery
PROC: 0DJD8ZZ Inspection of Lower Intestinal Tract, Via Natural or Artificial Opening Endoscopic (ICD-10-PCS; CPT 45378; principal; 2023-08-09 09:00)
DX: K92.1 Melena (principal); K57.30 Diverticulosis of large intestine without perforation or abscess without bleeding; K64.0 First degree hemorrhoids; K52.9 Noninfective gastroenteritis and colitis, unspecified
CPT/HCPCS: 45378; J2001; J2405; J2704

== ENCOUNTER → 2023-09-15 02:23 | Outpatient (CLI) | payer OTHER, SELFPAY ==
--- NOTE | 2023-09-15 06:45 | DI.MAMMO_ITS ---
Exam(s) MAMMO SCREENING EXAM: MAMMO SCREENING CLINICAL HISTORY: screening Z12.39 TECHNIQUE: Mammograms were interpreted according to the usual protocol including computer analysis w [employer] CAD system, tomosynthesis and C-view imaging. COMPARISON: [facility] MAMMO SCREEN CALL BACK UNI from 05/29/2021 FINDINGS: The breasts are composed of scattered fibroglandular densities, Breast Density category B. No suspicious masses or suspicious microcalcifications are seen. Previously noted area of nodularity in the upper outer quadrant of the right breast has significantly decreased in size. A biopsy marke r clip is again noted in the medial right breast. No skin thickening or abnormal axillary lymph node s are seen. There has been no significant change from prior exams. IMPRESSION: BI-RADS Category 2 - Benign Findings Yearly screening mammography is recommended. Breast Density - Category B, scattered fibroglandular densities. A negative radiographic report should not delay biopsy if a dominant or clinically suspicious mass is present. Up to ten percent of cancers are not identified on mammography. A negative report may reinforce clinical impression. Adenosis and dense breasts may obscure an underlying neoplasm. False positive reports average 6 to 10%. Patient will receive a letter notifying them of these results.
== END ==
PROVIDERS: PCP Nurse Practitioner Family; Visit Provider Nurse Practitioner Family
DX: Z12.31 Encounter for screening mammogram for malignant neoplasm of breast (principal)
CPT/HCPCS: 77063; 77067

== ENCOUNTER 2024-10-17 19:51 | Outpatient (REF) | payer BC, SELFPAY ==
--- NOTE | 2024-10-17 18:00 | PAPFT_PTH ---
PATIENT: Deloris Hernandez LOC: [facility] U#:[id number] AGE/SX: 59/F ROOM: RE10/17/[address]: Chandan Robb DNP : 1965 BED: DIS: 10/17/2024 SPEC #: [id number] RECD: 10/18/24 12:48 STATUS: JORDI REQ #: [id number] TANO: 10/17/24 18:[address]: Chandan Garcia DEPT: [facility] Cytology RECD BY: Kyleigh Moreno Tissues: 1 - CX/ENDOCX FOR PAP SMEARS Procedures: PAP THIN PREP/[facility] Screening HPV DNA PROBE Comments: [id number] (HPV 16 & 18/45)
== END 2024-10-17 19:52 | disposition home or self-care (01) ==
LOC: LBN 19:51
PROVIDERS: PCP Nurse Practitioner Family; Visit Provider Nurse Practitioner Family
DX: Z12.4 Encounter for screening for malignant neoplasm of cervix (principal)
CPT/HCPCS: 88142; 87624

== ENCOUNTER 2024-10-31 07:54 | Outpatient (CLI) | payer BC, SELFPAY ==
--- NOTE | 2024-10-31 08:00 | DI.MAMMO_ITS ---
Exam(s) MAMMO SCREENING EXAM: MAMMO SCREENING CLINICAL HISTORY: screening, Z12.39 TECHNIQUE: Bilateral full field digital CC and MLO mammographic images were obtained with 3D tomosynthesis and utilizing computer aided detection (CAD). COMPARISON: Comparison is made with prior examinations. FINDINGS: Masses/Architectural Distortion: No suspicious masses or areas of architectural distortion are present. There is continued decrease in size of the nodule in the upper outer quadrant of the right breast. Microcalcifications: No suspicious pleomorphic-type are seen. Skin Thickening/Nipple Retraction: None. IMPRESSION: 1. No significant interval change with no specific features of malignancy noted. 2. Unless there is more urgent need, screening mammography is recommended, as per [employer] guidelines. BI-RADS Category 2 - Benign Findings Breast Density - Category C - The breast are heterogeneously dense, which may obscure small masses. Breast density Category C or D implies that the patient has dense breast tissue. Dense breast tissue can make it harder to find cancer on a mammogram. Dense breast tissue is also associated with an increased risk of breast cancer. This information about the result of the mammogram report was provided to the patient to raise their awareness. Use this report when you speak with the patient about their risks for breast cancer, which includes their family history. At that time, you may recommend additional screening tests (Ultrasound or MRI) as these tests may add significant information. A negative radiographic report should not delay biopsy if a dominant or clinically suspicious mass is present. Up to ten percent of cancers are not identified on mammography. A negative report may reinforce clinical impression. Adenosis and dense breasts may obscure an underlying neoplasm. False positive reports average 6 to 10%. Patient will receive a letter notifying them of these results.
== END 2024-10-31 08:14 ==
LOC: DI 07:54
PROVIDERS: PCP Nurse Practitioner Family; Visit Provider Nurse Practitioner Family
DX: Z12.31 Encounter for screening mammogram for malignant neoplasm of breast (principal); R92.333 Mammographic heterogeneous density, bilateral breasts
CPT/HCPCS: 77063; 77067

== ENCOUNTER 2024-11-15 15:13 | Emergency (ER) | payer BC, SELFPAY ==
[2024-11-15] VITALS (31 sets, daily range): BP systolic 125–153; BP diastolic 77–91; PULSE 75–103; RESP 10–26; TEMP 36.8–36.9; O2SAT 96–100
--- NOTE | 2024-11-15 16:00 | DI.CT_ITS ---
Exam(s) CT ABDOMEN PELVIS CTA EXAM: CT ABDOMEN PELVIS CTA CLINICAL HISTORY: GI bleed, Hx diverticulitis. TECHNIQUE: Imaging Protocol: Axial computed tomography images with coronal and sagittal reformatted images were created and reviewed CONTRAST MATERIAL: Intravenous: Omnipaque 350 Contrast volume:100 ml Oral: None COMPARISON: CT CT ABDOMEN PELVIS W from 07/01/2023 FINDINGS: Scarring in the left lung base is unchanged. There are no pleural effusions. ABDOMEN: There is no evidence of abdominal aortic aneurysm and no aneurysmal dilatation of the iliac arteries and common femoral arteries. No dissection. Inferior mesenteric artery is patent.The celiac and superior mesenteric arteries are patent.No significant stenosis in the renal arteries. There are no ischemic appearing bowel loops. However, there is some increased intraluminal density throughout the sigmoid seen only following contrast injection and suspicious for intraluminal bleeding. This is confined to the sigmoid and rectosigmoid. There are diverticuli in the sigmoid. However, is difficult to locate an actual culprit diverticulum. There is also asymmetric density in the rectum which cannot rule out presence of a mass at this level. There is no ascites. LIVER: The previously described benign cysts in the liver remain unchanged. Largest is in the subcapsular right hepatic lobe and measures 1.5 x 1.2 cm. There are no dilated intrahepatic ducts. These do not require further investigation. GALLBLADDER/BILIARY: Single around the gallstone is again noted which measures 1 cm. Gallbladder otherwise unremarkable and without evidence of acute cholecystitis. CBD is not dilated. PANCREAS: No evidence of pancreatic mass nor dilatation of the pancreatic duct. SPLEEN: Spleen is not enlarged. There are no intrasplenic lesions. Splenic and portal veins are patent. ADRENALS: There are no significant adrenal masses. KIDNEYS: No cysts evident. No calculi nor hydronephrosis. No solid renal masses. ABDOMINAL AORTA: The abdominal aorta is not enlarged. LYMPH NODES: There is no retroperitoneal nor para-aortic adenopathy. No obvious mesenteric masses. ABDOMINAL WALL: No evidence of significant anterior abdominal wall hernia. GI: There is no evidence of bowel obstruction, free air, nor abscess. PELVIS: LYMPH NODES: There is no intrapelvic nor inguinal adenopathy. GI: There is no evidence of acute appendicitis.There is sigmoid diverticulosis. There does not appear to be diverticular disease above the level the sigmoid. URINARY BLADDER: No calculi nor masses evident. No evidence of gas to suggest fistulous communication. REPRODUCTIVE: Uterus size normal. No abnormal adnexal masses nor free fluid in the pelvis. There is slightly prominent veins on both sides of the uterus. OSSEOUS: No fractures. No significant osseous lesions. IMPRESSION: 1. There is sigmoid diverticulosis. Is difficult to determine a culprit diverticulum. However, there does appear to be enhancement and mucosal enhancement in the lumen of the entire sigmoid and rectosigmoid. Also cannot exclude rectal mass. Colonoscopy is recommended 2. No evidence of acute appendicitis. 3. Cholelithiasis again noted, without evidence of acute cholecystitis nor dilatation of biliary tree Report called by myself to ER provider 11/15/2024 at 6:20 p.m. RADIATION DOSE DELIVERED: Total DLP DATA REPOSITORY: All CT scans at this facility are submitted to the National Radiology Data Registry (NRDR) Dose Index Registry (DIR) with the [employer] (A[employer]). RADIATION OPTIMIZATION: All CT scans at this facility use at least one of these dose optimization techniques: automated exposure control; mA and/or kV adjustment per patient size (includes targeted exams where dose is matched to clinical indication); or iterative reconstruction.
[2024-11-15 16:54] LABS: Abs Immature Grans 0.02 10^3/uL (0.0-0.06); HCT 38.5 % (36.0-46.0); HGB 12.9 g/dL (11.2-15.7); Immature Grans % 0.3 %; MCH 29.9 pg (27.0-33.0); MCHC 33.5 % (32.0-36.0); MCV 89 fL (80-95); MPV 8.9 fL (8.0-11.0); Platelet Count 361 10^3/uL (130-400); RBC 4.32 10^6/uL (3.93-5.22); RDW 12.5 % (11.7-14.6); RDW-SD 41.3 fL; WBC 5.88 10^3/uL (4.4-10.8)
[2024-11-15 16:55] LABS: Glucose Negative (Negative)
[2024-11-15 17:06] LABS: INR 1.0 (0.9-1.1); PTT Activated 27.2 sec (20.6-30.2); Prothrombin Time 9.9 sec (9.1-11.1)
[2024-11-15 17:08] LABS: ALT 19 U/L (14-59); AST 20 U/L (15-37); Albumin 3.3 g/dL (3.4-5.0); Alkaline Phosphatase 54 U/L (46-116); Anion Gap 7.7 mmol/L (3-11); BUN 12 mg/dL (7-18); Bilirubin, Total 0.4 mg/dL (0.2-1.0); CO2 27.3 mmol/L (21.0-32.0); Calcium 8.9 mg/dL (8.5-10.1); Chloride 106 mmol/L (98-107); Estimated GFR 100.81 (mL/min/1.73m2); Glucose 98 mg/dL (74-106); Magnesium 2.2 mg/dL (1.8-2.4); Potassium 3.9 mmol/L (3.5-5.1); Sodium 141 mmol/L (136-145); Total Protein 7.1 g/dL (6.4-8.2)
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
[2024-11-15] MEDS: Normal Saline - Diluent 50 ML VIAL IJ (17:50)
[2024-11-15] MEDS: Omnipaque 350 MG/ML 100 ML BTL IJ (17:50)
[2024-11-15] MEDS: Normal Saline Flush 10 ML SYR IVP (17:51)
[2024-11-15 18:57] LABS: Lab Add On Test DONE
[2024-11-15 19:11] LABS: Iron 71 ug/dL (50-170); Total Iron Binding Capacity 242 ug/dL (250-450); Transferrin Sat 29 % (15-50)
== END 2024-11-15 19:28 | disposition home or self-care (01) ==
PROVIDERS: Emergency Provider Registered Nurse Emergency; PCP Nurse Practitioner Family
DX: K92.2 Gastrointestinal hemorrhage, unspecified (principal); K52.9 Noninfective gastroenteritis and colitis, unspecified
CPT/HCPCS: 99283; 99285; 80053; 74174; 81003; 83540; 83550; 83735; 85025; 85610; 85730; J3490

== ENCOUNTER 2025-01-22 03:15 | Outpatient (CLI) | payer BC, SELFPAY ==
[2025-01-22 16:04] LABS: Abs Immature Grans 0.09 10^3/uL (0.0-0.06); HCT 41.8 % (36.0-46.0); HGB 13.5 g/dL (11.2-15.7); Immature Grans % 1.1 %; MCH 29.5 pg (27.0-33.0); MCHC 32.3 % (32.0-36.0); MCV 91 fL (80-95); MPV 8.8 fL (8.0-11.0); Platelet Count 366 10^3/uL (130-400); RBC 4.58 10^6/uL (3.93-5.22); RDW 14.3 % (11.7-14.6); RDW-SD 47.9 fL; WBC 8.18 10^3/uL (4.4-10.8)
[2025-01-22 16:37] LABS: Anion Gap 9.3 mmol/L (3-11); BUN 14 mg/dL (7-18); C-Reactive Protein 1.08 mg/dL (<or=0.5); CO2 28.7 mmol/L (21.0-32.0); Calcium 9.7 mg/dL (8.5-10.1); Chloride 102 mmol/L (98-107); Estimated GFR 85.89 (mL/min/1.73m2); Glucose 125 mg/dL (74-106); Lipase 57 U/L (<78); Magnesium 2.3 mg/dL (1.8-2.4); Potassium 4.1 mmol/L (3.5-5.1); Sodium 140 mmol/L (136-145)
[2025-01-25 16:58] LABS: G6PD Enzyme Activity 10.1 U/g Hb (8.0 - 11.9)
== END 2025-01-22 03:16 | disposition home or self-care (01) ==
LOC: LBO 03:15
PROVIDERS: PCP Nurse Practitioner Family; Visit Provider Internal Medicine Gastroenterology
DX: K51.011 Ulcerative (chronic) pancolitis with rectal bleeding (principal)
CPT/HCPCS: 36415; 80048; 82955; 83690; 83735; 85025; 86140

== ENCOUNTER 2025-01-26 10:54 | Outpatient (REF) | payer BC, SELFPAY | END 2025-01-26 10:55 | disposition home or self-care (01) | LOC: LBN 10:54 | PROVIDERS: PCP Nurse Practitioner Family; Visit Provider Internal Medicine Gastroenterology | DX: K51.011 Ulcerative (chronic) pancolitis with rectal bleeding (principal) | CPT/HCPCS: 83993 ==